=== PATIENT | female | born 1970 | race Caucasian/White ===

== ENCOUNTER 2019-03-14 22:42 | Inpatient (IN) | payer SELFPAY ==
[~2019-03-14 22:42] MED LIST: Iopamidol-370 76% 500 ML 1 ML ONE
[2019-03-14 23:10] LABS: #Lymphocytes 1.1 thou/uL (1.20-3.40); #Monocytes 0.5 thou/uL (0.11-0.59); #Neutrophils 7.1 thou/uL (1.40-6.50); %Basophils 0.4 % (0.0-1.0); %Eosinophils 0.4 % (0.0-10.0); %Lymphocytes 12.7 % (21.0-51.0); %Monocytes 5.5 % (0.0-10.0); %Neutrophils 80.9 % (42.0-75.0); Mean Corpuscular HGB CONC 35.8 g/dL (32.0-36.0); Mean Corpuscular Hemoglobin 35.2 pg (27.0-31.0); Mean Corpuscular Volume 98.3 fL (78.0-98.0); Mean Platelet Volume 7.8 fL (7.4-10.4); Platelet Count 211 thou/uL (130-400); RBC Distribution Width 11.1 % (11.5-14.5); Red Blood Cell (RBC) Count 4.83 mill/uL (4.20-5.40); White Blood Cell (WBC) Count 8.7 thou/uL (4.8-10.8)
[2019-03-14 23:24] LABS: Bacteria/HPF None Seen HPF (None Seen); Bilirubin Negative (Negative); Blood, Urine Trace (Negative); Clarity Turbid (Clear); Glucose, Urine (Dipstick) Normal (Negative); Leukocyte Negative Leu/uL (Negative); Nitrite Negative (Negative); Protein, Urine (Dipstick) 30 mg/dL (Neg-Trace); RBC/HPF 0-3 HPF (0-3); Urobilinogen Normal mg/dL (Less than 2)
[2019-03-14 23:26] LABS: Pregnancy Test - Urine (BHCG) Negative (Negative); Pregu Control Background? CLEAR/WHITE (CLR/WHITE); Pregu Control Bar Appear? YES (CONTROL BAR); Specific Gravity 1.015 (1.002-1.036)
[2019-03-14 23:31] LABS: ALT (SGPT) 24 U/L (8-55); AST (SGOT) 31 U/L (5-34); Alkaline Phosphatase 93 U/L (40-110); Anion Gap 19 mmol/L (10-20); BUN (Urea Nitrogen) 7 mg/dL (7.0-18.7); Calc. Creatinine Clearance 0 mL/min (70-130); Calcium 10.3 mg/dL (7.8-10.44); Carbon Dioxide 23 mmol/L (22-29); Chloride 96 mmol/L (98-107); Estimated GFR-MDRD 62; Globulin 3.5 g/dL (2.4-3.5); Glucose 207 mg/dL (70-105); Lipase 737 U/L (8-78); Potassium 3.3 mmol/L (3.5-5.1); Protein, Total 8.5 g/dL (6.0-8.3); Sodium 135 mmol/L (136-145)
[2019-03-14] MEDS ORDERED: Ondansetron PF 4 MG/2 ML Vial ONE (23:33)
[2019-03-14] MEDS ORDERED: Fentanyl 100 MCG/2 ML VIAL ONE (23:33)
[2019-03-15] MEDS ORDERED: Fentanyl 100 MCG/2 ML VIAL ONE (02:15)
[2019-03-15] MEDS ORDERED: Ondansetron ODT 4 MG TAB SL PRN (04:24)
[2019-03-15] MEDS ORDERED: Ondansetron PF 4 MG/2 ML Vial IVP PRN ×2 (04:24→05:57)
[2019-03-15] MEDS: Fentanyl 100 MCG/2 ML VIAL SLOW IVP PRN ×8 (04:46→22:08)
[2019-03-15 04:52] VITALS: BMI 27.0
[2019-03-15] MEDS ORDERED: Ondansetron ODT 4 MG TAB PO PRN (05:57)
[2019-03-15] MEDS ORDERED: Calcium Carbonate 500 MG ChewTAB PO PRN (05:57)
[2019-03-15] MEDS ORDERED: hydrALAZINE 20 MG/ML VIAL SLOW IVP PRN (06:00)
[2019-03-15] MEDS: D5 1/2 NS w/20 mEq KCL 1,000 ML IV SCH ×3 (06:24→18:21)
--- NOTE | 2019-03-15 06:36 | HP ---
PRIMARY CARE PHYSICIAN: The patient recently relocated to [place]. CHIEF COMPLAINT: Abdominal discomfort. HISTORY OF PRESENT ILLNESS: The patient is a 48-year-old female with intermittent alcohol abuse, presented to the emergency room with abdominal discomfort. The abdominal discomfort was in the epigastric region radiating to her back. It constant with intermittent waxing and waning. The pain started 2 days ago. The patient drank heavily this week end and her last drink was Wednesday. She had several episodes of vomiting, which was bilious. She denies any fever or chills. No chest pain, palpitations, lightheadedness, dizziness, or diaphoresis reported. In the emergency room, her workup was consistent with acute pancreatitis with lipase of 737. She received a total of 100 mcg of fentanyl with IV fluids and Zofran in the emergency room. PAST MEDICAL HISTORY: 1. Hypertension. 2. History of pancreatitis, this is a 4th episode this year. 3. Colonic polyp. 4. Hiatal hernia. 5. Fatty liver. PAST SURGICAL HISTORY: Partial hysterectomy. Tonsillectomy. EGD. Colonoscopy that showed several polyps. She was advised to get colonoscopy every year by her primary care physician per patient report. ALLERGIES: NO KNOWN DRUG ALLERGIES. CURRENT HOME MEDICATIONS: 1. Amlodipine 5 mg daily. 2. Bentyl 10 mg daily. 3. Omeprazole 20 mg daily. SOCIAL HISTORY: The patient drinks alcohol intermittently. Denies any drug use. No smoking. She currently lives with her family. FAMILY HISTORY: Heart disease runs in her family. REVIEW OF SYSTEMS: All other review of systems was reviewed and were negative. PHYSICAL EXAMINATION: VITAL SIGNS: In the emergency room showed temperature 97.8, respirations 20, pulse of 105 with a blood pressure 145/89 with O2 saturation 98% on room air. GENERAL: A 48-year-old female in mild distress due to epigastric discomfort. HEENT: Head is atraumatic and normocephalic. Sclerae anicteric. Dry mucous membranes. No oral lesion. NECK: Supple. No JVD appreciated. No carotid bruit. LUNGS: Clear to auscultation bilaterally. No wheezing, rales, or rhonchi. HEART: S1 and S2 present. Regular rate and rhythm. No rubs or gallops. ABDOMEN: Soft. There is epigastric tenderness on superficial palpation. No rebound or guarding. No costovertebral angle tenderness. EXTREMITIES: No edema or calf tenderness. NEUROLOGIC: Grossly nonfocal. Moves all 4 extremities. PSYCHIATRIC: Alert, awake and oriented x3. SKIN: Warm and dry. LYMPH NODES: No palpable lymph nodes in the neck. PERIPHERAL VASCULAR: Radial pulses palpable bilaterally. MUSCULOSKELETAL: No joint swelling or tenderness. LABORATORY FINDINGS: CBC showed WBC 8.7 with hemoglobin 17, hematocrit 47.5, MCV of 98.3, platelet 211. Chemistry showed sodium 135, potassium 3.3, chloride 96, bicarb 23, BUN 7, creatinine 0.96, glucose of 207. Urinalysis was negative for any bacteria. IMAGING: CT scan of the abdomen and pelvis has been done, report is pending at this time. Per ER report, it was consistent with pancreatitis without any complications. IMPRESSION: 1. Acute alcoholic pancreatitis. Per patient report, she denies any history of cholelithiasis. 2. Alcohol abuse. 3. Dehydration with hyponatremia and hypokalemia. 4. Hyperglycemia, rule out diabetes mellitus type 2. 5. History of hypertension. 6. Fatty liver. 7. Hiatal hernia. 8. History of colonic polyp. 9. Macrocytosis probably secondary to alcoholism. PLAN: 1. The patient will be monitored on the medical floor. We will continue IV fluids. We will await official CT scan of the abdomen report. 2. Recheck labs in a.m. including hemoglobin A1c and lipase. 3. We will keep her n.p.o. except for ice chips. 4. DVT prophylaxis. 5. The patient was extensively counseled to quit drinking. Plan of care was discussed with the patient in detail. She stated understanding. Job ID: [id number]
[2019-03-15] MEDS: Cyanocobalamin (Vitamin B-12) 1,000 MCG TAB PO SCH (08:33)
[2019-03-15] MEDS: Folic Acid 1 MG TAB PO SCH (08:33)
[2019-03-15] MEDS: Famotidine 20 MG TAB PO SCH ×2 (08:34→19:30)
[2019-03-15] MEDS: Thiamine 100 MG TAB PO SCH (08:34)
[2019-03-15] MEDS: Multivit, Therapeutic 1 TAB PO SCH (08:34)
--- NOTE | 2019-03-15 08:40 | CT ---
PRELIMINARY REPORT/[facility]/EMERGENCY AFTER HOURS PROCEDURE: PROCEDURE INFORMATION: Exam: CT Abdomen And Pelvis With Contrast Exam date and time: 03/15/2019 12:28 AM Age: 48 years old Clinical history: Patient HX: F48 presents to ED with C/O sharp abdominal pain that radiates to her b ack and chest. Pain began on Wednesday as intermittent pain, but PT is now reporting that the pain is co nstant. PT also C/O nausea, vomiting, and subjective fever. PT reports that this pain feels like when she had pancreatitis in the past. Reports that she has had pancreatitis 3 times from a HX of heavy d rinking. Last pancreatitis was July of this year. PT drank heavily this weekend and reports that her last drink was Wednesday. Patient has taken ibuprofen for pain. Denies HX of diabetes, heart problems , and kidney function problems. PT does not have a gi doctor in this area. Denies diarrhea and urinar y complaints. Pmhx of HTN, hyperlipidemia and fatty liver with no scarring. Surgical HX of hysterectomy. TECHNIQUE: Imaging protocol: Computed tomography of the abdomen and pelvis with intravenous contrast. COMPARISON: No relevant prior studies available. FINDINGS: Liver: There is hepatomegaly and fatty infiltration of the liver. There are no focal liver lesions pr esent. Gallbladder and bile ducts: The gallbladder is distended without wall thickening, stones or surroundi ng inflammatory change. Pancreas: Mild peripancreatic edema may represent acute pancreatitis. No mass or duct dilation. Spleen: Normal. No splenomegaly. Adrenals: Normal. No mass. Kidneys and ureters: Normal. No hydronephrosis. Stomach and bowel: The stomach and small bowel are normal.There is diverticular disease of the colon, without evidence of acute diverticulitis. No perforation, or abscess. No signs or history of bleeding provided. Appendix: A normal appendix is identified. Intraperitoneal space: Unremarkable. No free air. No significant fluid collection. Vasculature: Unremarkable. No abdominal aortic aneurysm. Lymph nodes: Unremarkable. No enlarged lymph nodes. Bladder: Unremarkable as visualized. Reproductive: The patient is status post hysterectomy. No adenexal masses are seen. Bones/joints: Unremarkable. No acute fracture. Soft tissues: There is a small fat-containing umbilical hernia. IMPRESSION: Acute pancreatitis. Thank you for allowing us to participate in the care of your patient. Dictated and Authenticated by: Erin Montana MD 03/15/2019 12:46 AM Central Time ([place] & [place]) FINAL REPORT EMERGENCY AFTER HOURS CT ABDOMEN AND PELVIS: IMPRESSION: I agree with the preliminary report provided by [facility]. There is peripancreatic inflammatory stranding suspicious for pancreatitis. No drainable fluid collec tion is evident. There is a small right hepatic lobe cyst. There are possible layered densities withi n the gallbladder and possibly related to stones. Right upper quadrant ultrasound is recommended for further evaluation. Spleen, adrenal glands, and kidneys appear within normal limits. There is a wilton l appendix in the right lower quadrant. There is scattered colonic diverticulosis without evidence of active diverticulitis. There is scattered degenerative and osteoarthritic change. POS: ANDREA
[2019-03-15] MEDS ORDERED: FLU VACC QS2019-20(6MOS UP)/PF 60 MCG/0.5 ML SYRINGE IM ONE (09:00)
[2019-03-15 12:43] LABS: Anion Gap 15 mmol/L (10-20); BUN (Urea Nitrogen) 4 mg/dL (7.0-18.7); Calc. Creatinine Clearance 104 mL/min (70-130); Calcium 9.3 mg/dL (7.8-10.44); Carbon Dioxide 22 mmol/L (22-29); Chloride 102 mmol/L (98-107); Estimated GFR-MDRD Greater than 90; Glucose 180 mg/dL (70-105); Potassium 3.6 mmol/L (3.5-5.1); Sodium 135 mmol/L (136-145)
[2019-03-15 13:22] LABS: Hemoglobin 15.4 g/dL (12.0-16.0); Lymphocytes 7 % (21-51); MDiff Complete? YES; Mean Corpuscular HGB CONC 35.3 g/dL (32.0-36.0); Mean Corpuscular Hemoglobin 34.5 pg (27.0-31.0); Mean Corpuscular Volume 97.7 fL (78.0-98.0); Mean Platelet Volume 7.8 fL (7.4-10.4); Monocytes 3 % (0-10); Neutrophil 90 % (42-75); Platelet Count 176 thou/uL (130-400); Platelet Morphology Comment Appears Adequate; RBC Distribution Width 11.1 % (11.5-14.5); Red Blood Cell (RBC) Count 4.45 mill/uL (4.20-5.40); White Blood Cell (WBC) Count 10.4 thou/uL (4.8-10.8)
[2019-03-15] MEDS: Ketorolac Tromethamine 30 MG/ML VIAL IVP PRN ×2 (16:23→22:09)
[2019-03-15] MEDS ORDERED: Acetaminophen 1,000 MG in Premix Bag 1 BAG IVPB PRN (17:05)
--- NOTE | 2019-03-15 17:14 | PDOC.EVN ---
Event Note - Event Note Event Note: The patient continues to have severe abdominal pain. Her pain started after binge drinking a week ago. She hasn't eaten in a week, has had no bowel movement in a week. Her pain is epigastric, radiating to between her shoulder blades. Worst with eating. Fentanyl helps for an hour but then pain comes right back. She is trying toradol now. She had banana bag overnight she says. 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 Has no insurance. Moved to [place] three months ago and is bored, therefore drinks 1 pint of alcohol on weekends Patient says she had colonoscopy with 30 polyps discovered. Had an EGD last year that showed hiatal hernia. Mom had a large umbilical hernia with intestines hanging out. Dad had diverticulitis. Patient reports history of uterine cancer. Vitals: stable Gen: alert, awake, oriented times three. In distress from pain, tearful CVS: RRR, no murmurs, rubs, and gallops Lungs: CTAB Abdomen: +BS, soft, epigastric tenderness, + RUQ tenderness to deep palpation Extremities: no edema Labs: hypokalemia resolved Patient has no WBC Imaging: CT shows acute pancreatitis, distended gallbladder A/P: 48 year old with acute pancreatitis from alcohol - check abdominal ultrasound to evaluate distended GB. If positive for cholecystitis, consult surgery - add IV toradol prn, IV tylenol prn, continue IV fluids - add IV protonix for GERRD
--- NOTE | 2019-03-15 18:21 | ULT ---
GALLBLADDER ULTRASOUND: HISTORY: Abdominal pain, pancreatitis FINDINGS: The liver demonstrates increased echogenicity with focal sparing adjacent to the gallbladder. No hepa tic mass or abnormal biliary ductal dilatation is seen. The common duct measures 2 mm in diameter. The pancreas is not visualized due to overlying bowel gas. No gallstones, gallbladder wall thickening or pericholecystic fluid is identified. The right kidney i s normal. No free fluid is seen in the Stewart's pouch. IMPRESSION: 1. Fatty liver 2. No evidence of cholelithiasis
[2019-03-15] MEDS: Enoxaparin Sodium 40 MG/0.4 ML SYRINGE SC SCH (19:14)
[2019-03-16] MEDS: Fentanyl 100 MCG/2 ML VIAL SLOW IVP PRN ×5 (01:36→22:06)
[2019-03-16] MEDS: D5 1/2 NS w/20 mEq KCL 1,000 ML IV SCH ×4 (01:36→22:15)
[2019-03-16] MEDS: Ketorolac Tromethamine 30 MG/ML VIAL IVP PRN ×3 (04:13→18:51)
[2019-03-16 05:39] LABS: #Eosinphils 0.1 thou/uL (0.0-0.7); #Lymphocytes 0.9 thou/uL (1.20-3.40); #Monocytes 0.4 thou/uL (0.11-0.59); #Neutrophils 5.6 thou/uL (1.40-6.50); %Basophils 0.2 % (0.0-1.0); %Lymphocytes 12.9 % (21.0-51.0); %Monocytes 5.3 % (0.0-10.0); %Neutrophils 80.6 % (42.0-75.0); Hemoglobin 13.7 g/dL (12.0-16.0); Mean Corpuscular HGB CONC 35.3 g/dL (32.0-36.0); Mean Corpuscular Hemoglobin 34.5 pg (27.0-31.0); Mean Corpuscular Volume 97.5 fL (78.0-98.0); Mean Platelet Volume 7.8 fL (7.4-10.4); Platelet Count 176 thou/uL (130-400); RBC Distribution Width 11.1 % (11.5-14.5); Red Blood Cell (RBC) Count 3.99 mill/uL (4.20-5.40); White Blood Cell (WBC) Count 6.9 thou/uL (4.8-10.8)
[2019-03-16 05:45] LABS: Hemoglobin A1c 5.5 % (4.0-6.0)
[2019-03-16 06:03] LABS: ALT (SGPT) 15 U/L (8-55); AST (SGOT) 17 U/L (5-34); Alkaline Phosphatase 67 U/L (40-110); Anion Gap 10 mmol/L (10-20); BUN (Urea Nitrogen) Less than 4 mg/dL (7.0-18.7); Bilirubin, Total 0.8 mg/dL (0.2-1.2); Calc. Creatinine Clearance 106 mL/min (70-130); Calcium 9.3 mg/dL (7.8-10.44); Carbon Dioxide 26 mmol/L (22-29); Chloride 102 mmol/L (98-107); Estimated GFR-MDRD Greater than 90; Globulin 2.9 g/dL (2.4-3.5); Glucose 193 mg/dL (70-105); Lipase 342 U/L (8-78); Magnesium 1.6 mg/dL (1.6-2.6); Phosphorus 2.9 mg/dL (2.3-4.7); Potassium 3.6 mmol/L (3.5-5.1); Protein, Total 6.9 g/dL (6.0-8.3); Sodium 134 mmol/L (136-145)
[2019-03-16] MEDS: Folic Acid 1 MG TAB PO SCH (08:03)
[2019-03-16] MEDS: Thiamine 100 MG TAB PO SCH (08:03)
[2019-03-16] MEDS: Famotidine 20 MG TAB PO SCH ×2 (08:04→21:24)
[2019-03-16] MEDS: Multivit, Therapeutic 1 TAB PO SCH (08:04)
[2019-03-16] MEDS: Cyanocobalamin (Vitamin B-12) 1,000 MCG TAB PO SCH (08:04)
[2019-03-16] MEDS: Pantoprazole 40 MG VIAL IVP SCH (08:06)
[2019-03-16] MEDS ORDERED: Senokot S 8.6-50 MG TAB PO SCH (17:30)
[2019-03-16] MEDS ORDERED: Lorazepam 0.5 MG TAB PO SCH (17:30)
[2019-03-16] MEDS ORDERED: Polyethylene Glycol 3350 17 GM Packet PO SCH (17:30)
[2019-03-16] MEDS: Enoxaparin Sodium 40 MG/0.4 ML SYRINGE SC SCH (21:26)
[2019-03-17] MEDS: Ketorolac Tromethamine 30 MG/ML VIAL IVP PRN (03:19)
[2019-03-17] MEDS: D5 1/2 NS w/20 mEq KCL 1,000 ML IV SCH (04:30)
[2019-03-17] MEDS: Fentanyl 100 MCG/2 ML VIAL SLOW IVP PRN (04:34)
[2019-03-17] MEDS ORDERED: Senokot S 8.6-50 MG TAB PO SCH (09:00)
[2019-03-17] MEDS: Famotidine 20 MG TAB PO SCH (09:19)
[2019-03-17] MEDS: Thiamine 100 MG TAB PO SCH (09:20)
[2019-03-17] MEDS: Multivit, Therapeutic 1 TAB PO SCH (09:20)
[2019-03-17] MEDS: Cyanocobalamin (Vitamin B-12) 1,000 MCG TAB PO SCH (09:20)
[2019-03-17] MEDS: Pantoprazole 40 MG VIAL IVP SCH (09:21)
[2019-03-17] MEDS: Folic Acid 1 MG TAB PO SCH (09:21)
--- NOTE | 2019-03-17 11:38 | PDOC.HOSPP ---
- Subjective Encounter Date: 03/16/19 Encounter Time: 09:30 non-verbal Subjective: LATE entry note The patient states her pain is down to a 3/10. Patient denies nausea or vomiting. She states toradol helps a lot. Tolerated clears, wants to advance to full liquid diet. Patient is saying she is bloated and feels constipated. Also wanted something for anxiety - Objective Vital Signs & Weight: Vital Signs (12 hours) Temp Pulse Resp BP BP Pulse Ox 03/17/19 08:00 96 03/17/19 07:39 98.7 F 70 18 133/86 96 03/17/19 06:53 96 03/17/19 04:14 98.1 F 85 16 121/78 96 03/17/19 00:11 98.0 F 81 18 120/78 96 Weight Admit Weight 142 lb Weight 142 lb 14.4 oz I&O: 03/16/19 03/17/19 03/18/19 06:59 06:59 06:59 Intake Total 2300 Balance 2300 Result Diagrams: 03/16/19 05:13 03/16/19 05:13 Hospitalist ROS - Review of Systems Constitutional: denies: fever, chills Cardiovascular: denies: chest pain - Medication Medications: Active Medications Generic Name Dose Route Start Last Admin Trade Name Freq PRN Reason Stop Dose Admin Cyanocobalamin 1,000 mcg 03/15/19 09:00 03/17/19 09:20 Vitamin B-12 PO 1,000 mcg DAILY ALLISON Administration Enoxaparin Sodium 40 mg 03/15/19 21:00 03/16/19 21:26 Lovenox SC Not Given 2100 ALLISON Famotidine 20 mg 03/15/19 09:00 03/17/19 09:19 Pepcid PO 20 mg BID ALLISON Administration Fentanyl 50 mcg 03/16/19 09:16 03/17/19 04:34 Sublimaze SLOW IVP 50 mcg Q4H PRN Administration Severe Pain (7-10) Folic Acid 1 mg 03/15/19 09:00 03/17/19 09:21 Folvite PO 1 mg DAILY ALLISON Administration Potassium Chloride/Dextrose/Sod Cl 1,000 mls @ 150 mls/hr 03/15/19 06:00 04:30 D5 1/2 Ns W/20 Meq Kcl IV 1,000 mls .[id number] ALLISON Administration Ketorolac Tromethamine 15 mg 03/16/19 09:16 03/17/19 03:19 Toradol IVP 03/20/19 16:19 15 mg Q6H PRN Administration Pain Multivitamins 1 tab 03/15/19 09:00 03/17/19 09:20 Theragran PO 1 tab DAILY ALLISON Administration Pantoprazole Sodium 40 mg 03/16/19 09:00 03/17/19 09:21 Protonix IVP 40 mg DAILY ALLISON Administration Senna/Docusate Sodium 1 tab 03/17/19 09:00 03/17/19 09:20 Senokot S PO 1 tab BID ALLISON Administration Thiamine HCl 100 mg 03/15/19 09:00 03/17/19 09:20 Thiamine PO 100 mg DAILY ALLISON Administration - Exam General Appearance: NAD, awake alert Eye: PERRL, anicteric sclera ENT: normocephalic atraumatic, no oropharyngeal lesions Neck: supple, symmetric, no JVD Heart: RRR, no murmur, no gallops, no rubs Respiratory: CTAB, no wheezes, no rales, no ronchi Gastrointestinal: soft, non-tender, non-distended, diminished bowl sounds Extremities: no cyanosis, no clubbing, no edema Hosp A/P - Plan This is 48 year old female with acute pancreatitis Acute pancreatitis - started clears, advance to full iquid in afternoon. Patient says she will try regular diet tomorrow Constipation - miralax Alcohol abuse - patient will abstain on discharge - thiamine and folic acid Hypertension - hold amlodipine Hyponatremia - continue to monitor Code status: full code
[2019-03-17 12:48] VITALS: BP 145/87; TEMP 97.4
--- NOTE | 2019-03-17 16:18 | DIS ---
DATE OF ADMISSION: 03/15/2019 DATE OF DISCHARGE: 03/17/2019 DISCHARGE DIAGNOSES: Acute pancreatitis, fatty liver, alcoholism, hyponatremia/hypokalemia, hyperglycemia, constipation CONSULTATIONS: None. PROCEDURES: None. BRIEF HISTORY OF PRESENT ILLNESS: This is a 48-year-old female with a past medical history of pancreatitis, alcoholism, who presented to the emergency room with abdominal discomfort. The patient reported that she had binge drink over the weekend and shortly after, started getting epigastric pain radiating to her back. The patient tried to see if it would go away on its own; however, it progressively got worse and was associated with multiple episodes of bilious vomiting. She denied any fevers or chills. In the emergency room, she was noted to have a lipase of 737. She had a CT scan of her abdomen that was consistent with acute pancreatitis. She was admitted for further management. Acute pancreatitis: The patient was given IV fluids and IV fentanyl p.r.n. She had the most relief with IV Toradol and on 03/16 she was advanced to a full liquid diet. This morning, she tolerated a regular diet and had no abdominal pain, nausea, or vomiting. She does have a history of gastritis and will take Bentyl at home p.r.n. as needed for pain. The patient did have an ultrasound done of her abdomen on the due to distended gallbladder that was seen on CT scan. This showed a fatty liver with no evidence of cholelithiasis. The patient was advised to stop drinking alcohol. She stated this is the last time that she would and she would start going to AA meetings. She will follow up with her PCP in a week. Alcoholism: The patient states that she binge drinks on the weekend. 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 She was advised to abstain from alcohol, which the patient stated she would comply with. On discharge, she was advised to take [id number] thiamine and was given prescriptions for folic acid supplements. Hyponatremia/hypokalemia: The patient presented with a potassium of 3.3 secondary to vomiting. This improved to 3.6 on the day of discharge. She did have a sodium of 134 on the day of discharge. She can consider getting a repeat BMP in a week. Hypertension: The patient was on amlodipine as an outpatient. She was not receiving it in the hospital and her blood pressure was in the 120s to 140s. She was told that she can hold off on it for now and if her blood pressure increases to 140 to resume it. Constipation: The patient had some constipation from IV pain medications, which resolved on the day of discharge. Hyperglycemia: The patient had a blood glucose elevated of 180 to 207. She had hemoglobin A1c checked that was 5.5. This can be followed up with her PCP as an outpatient. DISCHARGE PHYSICAL EXAMINATION: VITAL SIGNS: Temperature 98.5, heart rate 93, respiratory rate 18, O2 saturation 95% on room air, blood pressure 145/89. : The patient is alert, awake, and oriented x3. She is well appearing, slightly anxious. CVS: Regular rate and rhythm with no murmurs, rubs, or gallops. LUNGS: Clear to auscultation bilaterally. ABDOMEN: Positive bowel sounds. Slightly hyperactive, soft, nontender, nondistended. EXTREMITIES: She has 2+ dorsal pedis pulses, no edema. PERTINENT LABORATORY DATA: CBC on 03/16: Unremarkable. BMP on 03/16: Shows a sodium of 134, glucose of 193. LFTs on 03/16: Normal with AST of 17, ALT of 15, alkaline phosphatase of 67. Lipase 03/16: 342, which is improved from 615 on the . Hemoglobin A1c: 5.5. UA: Showed 30 of protein, 80 ketones, 7-10 white blood cells. PERTINENT IMAGING: CT abdomen/pelvis on the : Shows hepatomegaly and fatty infiltration of the liver. She also has a distended gallbladder without wall thickening, stones or surrounding inflammatory change. She has mild peripancreatic edema, which may represent acute pancreatitis. Abdominal ultrasound 03/15: Shows fatty liver with no evidence of cholelithiasis. DISCHARGE CONDITION: Stable. DISPOSITION: Home. ACTIVITY: As tolerated. DIET: Regular diet. DISCHARGE MEDICATIONS: Amlodipine 5 mg p.o. daily, Bentyl 10 mg p.o. daily, omeprazole 20 mg p.o. daily, folic acid 1 mg p.o. daily. The patient will buy [id number] B1 supplements. DISCHARGE INSTRUCTIONS: The patient should follow up with her PCP in a week. With regard to her fatty liver, she should abstain from alcohol and consider weight loss. She should consider a followup ultrasound as an outpatient. She should get a repeat BMP to evaluate resolution of hyponatremia and hypokalemia. Job ID: [id number]
== END 2019-03-17 14:28 | disposition home or self-care (01) | DRG 439 ==
LOC: ERS 22:42 → T4-B 03-15 04:39
PROVIDERS: ADMIT Internal Medicine; ATTEND Internal Medicine
DX: K85.20 Alcohol induced acute pancreatitis without necrosis or infection (principal); E87.1 Hypo-osmolality and hyponatremia; F10.288 Alcohol dependence with other alcohol-induced disorder; E87.6 Hypokalemia; K76.0 Fatty (change of) liver, not elsewhere classified; K59.00 Constipation, unspecified; I10 Essential (primary) hypertension; E86.0 Dehydration; R73.9 Hyperglycemia, unspecified; D75.89 Other specified diseases of blood and blood-forming organs; Z86.010 Personal history of colon polyps; Z90.710 Acquired absence of both cervix and uterus; Z79.899 Other long term (current) drug therapy
CPT/HCPCS: 36415; 74177; 76705; 80048; 80053; 81003; 81015; 81025; 83036; 83690; 83735; 84100; 85007; 85025; 85027; C9113; J0131; J1885; J2405; J3010; Q9967

== ENCOUNTER 2023-03-19 03:05 | Inpatient (IN) | payer BC, SELFPAY ==
[2023-03-19] MEDS ORDERED: Pantoprazole 40 MG VIAL ONE (03:26)
[2023-03-19] MEDS ORDERED: cefTRIAXone (ROCEPHIN) 1 GM VIAL ONE (03:26)
[2023-03-19] MEDS ORDERED: Sodium Chloride 0.9% 100 ML ONE (03:27)
[2023-03-19 03:40] LABS: #Eosinphils 0.2 thou/uL (0.0-0.7); #Monocytes 0.6 thou/uL (0.11-0.59); #Neutrophils 5.3 thou/uL (1.40-6.50); %Basophils 0.4 % (0.0-1.0); %Eosinophils 2.8 % (0.0-10.0); %Lymphocytes 8.8 % (21.0-51.0); %Monocytes 8.9 % (0.0-10.0); %Neutrophils 78.7 % (42.0-75.0); Hemoglobin 14.6 g/dL (12.0-16.0); Mean Corpuscular HGB CONC 34.8 g/dL (32.0-36.0); Mean Corpuscular Hemoglobin 34.8 pg (27.0-31.0); Mean Platelet Volume 11.1 fL (7.4-10.4); Platelet Count 148 10x3/uL (130-400); RBC Distribution Width 12.2 % (11.5-14.5); White Blood Cell (WBC) Count 6.7 10x3/uL (4.8-10.8)
[2023-03-19 03:48] LABS: BHCG - Serum Negative (NEGATIVE); Pregs Control Background? CLEAR/WHITE (CLR/WHITE); Pregs Control Bar Appear? YES (CONTROL BAR)
[2023-03-19 04:05] LABS: ALT (SGPT) 71 U/L (8-55); AST (SGOT) 84 U/L (5-34); Albumin 4.5 g/dL (3.5-5.0); Alkaline Phosphatase 137 U/L (40-110); BUN (Urea Nitrogen) 46 mg/dL (9.8-20.1); Bilirubin, Total 1.6 mg/dL (0.2-1.2); Calc. Creatinine Clearance 0 mL/min (70-130); Calcium 8.3 mg/dL (7.8-10.44); Chloride 65 mmol/L (98-107); Estimated GFR 17; Globulin 3.5 g/dL (2.4-3.5); Potassium 4.1 mmol/L (3.5-5.1); Sodium 125 mmol/L (136-145)
[2023-03-19 04:06] LABS: Acetaminophen Less than 10 mcg/mL (10.0-30.0); Alcohol Less than 10.0 mg/dL (Less than 10); Lipase 65 U/L (8-78); Magnesium 4.8 mg/dL (1.6-2.6); Salicylate Less than 8.0 mg/dL (15.0-30.0)
[2023-03-19 04:07] LABS: PTT 29.8 sec (22.9-36.1); Prothrombin Time 13.9 sec (12.0-14.7)
[2023-03-19] MEDS ORDERED: hydrOXYzine 25 MG TAB ONE (04:08)
[2023-03-19 04:10] LABS: Troponin I 0.021 ng/mL (< 0.028)
[2023-03-19 04:23] LABS: Carbon Dioxide Less than 8 mmol/L (22-29); Glucose 453 mg/dL (70-105)
[2023-03-19 04:38] LABS: Analyzer IN Cardio ER; Base Excess (BEa) -19.9 mEq/L (-2.0 to +3.0); Carboxyhemoglobin (COHb) 0.7 gm% (0.0-3.0); Hematocrit-ABG 37 % (36.0-47.0); Hemoglobin (Hb) 12.5 g/dL (12.0-16.0); O2 Tension (PaO2), arterial 102.2 mmHg (80.0-100.0); Potassium - ABG Lab 3.75 mmol/L (3.70-5.30)
[2023-03-19 04:44] LABS: Actual Bicarbonate (HCO3a) 5.9 mEq/L (22-28); CO2 Tension 15.7 mmHg (35.0-45.0); Puncture Site RRA; pH, Arterial 7.195 (7.35-7.45)
[2023-03-19 04:45] LABS: ALV-art Gradient 27.905 mmHg (0-20)
[2023-03-19] MEDS ORDERED: Morphine 4 MG/ML VIAL ONE (05:10)
[2023-03-19] MEDS ORDERED: INSULIN REGULAR IN 0.9 % NACL 100 UNITS/100 ML BAG ONE (05:22)
[2023-03-19] MEDS ORDERED: NS 0.9% w/ 20 MEQ KCL 1,000 ML IV PRN (05:23)
[2023-03-19] MEDS ORDERED: Ondansetron ODT 4 MG TAB PO PRN (05:23)
[2023-03-19] MEDS ORDERED: Dextrose 5 %-0.45 % NaCl 1,000 ML IV PRN (05:23)
[2023-03-19] MEDS ORDERED: Ondansetron PF 4 MG/2 ML Vial IVP PRN (05:23)
[2023-03-19] MEDS ORDERED: Acetaminophen 650 MG Suppository PR PRN (05:23)
[2023-03-19] MEDS ORDERED: Acetaminophen 325 MG TAB PO PRN (05:23)
[2023-03-19] MEDS ORDERED: Sodium Chloride 0.9% 1,000 ML IV PRN ×4 (05:23)
[2023-03-19] MEDS ORDERED: Electrolyte Replacement Protocol 1 EACH IVPB ONE (05:23)
[2023-03-19] MEDS ORDERED: Dextrose 50% Abboject 50 ML SYRINGE SLOW IVP PRN ×2 (05:23→20:03)
[2023-03-19] MEDS ORDERED: NS 0.9% w/ 20 MEQ KCL 1,000 ML ONE ×2 (05:40→08:43)
[2023-03-19] MEDS ORDERED: Octreotide Acetate 100 MCG/ML VIAL SLOW IVP SCH (06:00)
[2023-03-19] MEDS ORDERED: Octreotide Acetate 1,250 MCG in Sodium Chloride 0.9% 250 ML 250 ML IVPB SCH (06:00)
[2023-03-19] MEDS ORDERED: HUMULIN R 100 UNITS in Sodium Chloride 0.9% 100 ML IVPB SCH (06:00)
[2023-03-19] MEDS ORDERED: Octreotide Acetate 50 MCG/ML AMP SLOW IVP SCH (06:00)
[2023-03-19 06:38] LABS: BUN (Urea Nitrogen) 46 mg/dL (9.8-20.1); Calc. Creatinine Clearance 0 mL/min (70-130); Calcium 7.2 mg/dL (7.8-10.44); Chloride 75 mmol/L (98-107); Estimated GFR 19; Phosphorus 6.1 mg/dL (2.3-4.7); Potassium 4.2 mmol/L (3.5-5.1); Sodium 126 mmol/L (136-145)
[2023-03-19 06:44] LABS: Carbon Dioxide Less than 8 mmol/L (22-29); Glucose 408 mg/dL (70-105)
[2023-03-19] MEDS ORDERED: Sodium Bicarb 50 MEQ/50 ML VIAL ONE (06:47)
[2023-03-19 06:58] LABS: Bacteria/HPF None Seen HPF (None Seen); Bilirubin 1+ (Negative); Blood, Urine 2+ (Negative); CAUTI Indications for Culture Dysuria,urgency,freq; Clarity Turbid (Clear); Glucose, Urine (Dipstick) 70 mg/dL (Negative); Ketone, Urine 80 mg/dL (Negative); Leukocyte 75 Leu/uL (Negative); Nitrite Negative (Negative); Protein, Urine (Dipstick) 70 mg/dL (Neg-Trace); Specific Gravity, Urine 1.016 (1.002-1.036); Squamous Epithelial Greater than 50 HPF (0-3)
[2023-03-19 07:08] LABS: Urine Culture Reflex No No
[2023-03-19] MEDS: NS 0.9% w/ 20 MEQ KCL 1,000 ML IV PRN ×2 (08:50→11:05)
[2023-03-19 09:45] VITALS: BP 108/73
[2023-03-19 10:20] LABS: #Monocytes 0.3 thou/uL (0.11-0.59); #Neutrophils 3.2 thou/uL (1.40-6.50); %Basophils 0.2 % (0.0-1.0); %Lymphocytes 14.6 % (21.0-51.0); %Monocytes 6.9 % (0.0-10.0); %Neutrophils 78.1 % (42.0-75.0); Hematocrit 35.2 % (36.0-47.0); Hemoglobin 12.2 g/dL (12.0-16.0); Mean Corpuscular HGB CONC 34.7 g/dL (32.0-36.0); Mean Corpuscular Hemoglobin 34.6 pg (27.0-31.0); Mean Corpuscular Volume 99.7 fl (78.0-98.0); Mean Platelet Volume 10.6 fL (7.4-10.4); Platelet Count 112 10x3/uL (130-400); RBC Distribution Width 12.1 % (11.5-14.5); Red Blood Cell (RBC) Count 3.53 mill/uL (4.20-5.40)
[2023-03-19] MEDS ORDERED: Multivit, Adult Inj 10 ML VIAL IV SCH (10:45)
[2023-03-19 10:55] LABS: Anion Gap 30 mmol/L (10-20); BUN (Urea Nitrogen) 37 mg/dL (9.8-20.1); Calc. Creatinine Clearance 0 mL/min (70-130); Carbon Dioxide 14 mmol/L (22-29); Chloride 92 mmol/L (98-107); Estimated GFR 30; Glucose 234 mg/dL (70-105); Sodium 132 mmol/L (136-145)
[2023-03-19] MEDS: Morphine 4 MG/ML VIAL SLOW IVP PRN ×3 (11:05→20:38)
[2023-03-19 11:11] LABS: Calcium 6.8 mg/dL (7.8-10.44)
[2023-03-19 11:16] LABS: Polychromasia SLIGHT = 2-3 cells (100X) (0-2/hpf)
[2023-03-19 11:17] LABS: Platelet Adequacy Comment Platelets Decreased
[2023-03-19 11:30] VITALS: BMI 21.4
[2023-03-19] MEDS ORDERED: Multivitamins, Adult 10 ML in Sodium Chloride 0.9% 500 ML IV SCH (11:45)
[2023-03-19] MEDS ORDERED: Calcium Gluconate 4.6 MEQ in Sodium Chloride 0.9% 100 ML IVPB ONE (12:53)
[2023-03-19] MEDS: D5 1/2 NS w/20 mEq KCL 1,000 ML IV PRN ×3 (12:59→21:07)
[2023-03-19] MEDS ORDERED: CALCIUM GLUC 1 GM/NS 50 ML 1 GM in Premix 1 BAG IVPB SCH ×2 (13:15→17:30)
[2023-03-19] MEDS ORDERED: CALCIUM GLUC 1 GM/NS 50 ML BAG ONE (13:50)
[2023-03-19] MEDS: Thiamine HCl 200 MG/2 ML VIAL SLOW IVP SCH ×2 (14:32→15:22)
[2023-03-19] MEDS: Pantoprazole 80 MG, Admixture Fee 1 EACH in Sodium Chloride 0.9% 100 ML IVPB SCH (16:52)
[2023-03-19 17:11] LABS: Anion Gap 15 mmol/L (10-20); BUN (Urea Nitrogen) 22 mg/dL (9.8-20.1); Calc. Creatinine Clearance 44 mL/min (70-130); Calcium 7.5 mg/dL (7.8-10.44); Carbon Dioxide 24 mmol/L (22-29); Chloride 99 mmol/L (98-107); Estimated GFR 53; Glucose 125 mg/dL (70-105); Potassium 4.5 mmol/L (3.5-5.1); Sodium 133 mmol/L (136-145)
[2023-03-19] MEDS ORDERED: Dextrose 5% in Water 1,000 ML IV PRN (20:03)
[2023-03-19] MEDS ORDERED: Insulin Regular 300 UNITS/3 ML VIAL SC PRN ×2 (20:03)
[2023-03-19] MEDS ORDERED: Glucagon 1 MG/ML KIT IM PRN (20:03)
[2023-03-19] MEDS: Ciprofloxacin Lactate/D5W 400 MG in Premix 1 BAG IVPB SCH (20:38)
[2023-03-19] MEDS: Insulin Glargine 30 UNITS/0.3 ML VIAL SC SCH (20:38)
[2023-03-19 21:05] LABS: Hematocrit 29.5 % (36.0-47.0); Hemoglobin 10.5 g/dL (12.0-16.0)
[2023-03-19 21:25] LABS: Anion Gap 13 mmol/L (10-20); BUN (Urea Nitrogen) 17 mg/dL (9.8-20.1); Calc. Creatinine Clearance 50 mL/min (70-130); Calcium 7.6 mg/dL (7.8-10.44); Carbon Dioxide 24 mmol/L (22-29); Chloride 100 mmol/L (98-107); Estimated GFR 61; Glucose 233 mg/dL (70-105); Potassium 4.7 mmol/L (3.5-5.1); Sodium 132 mmol/L (136-145)
[2023-03-20] MEDS: Pantoprazole 80 MG, Admixture Fee 1 EACH in Sodium Chloride 0.9% 100 ML IVPB SCH (04:02)
[2023-03-20 05:01] LABS: Hematocrit 31.1 % (36.0-47.0); Manual Diff?? YES; Mean Corpuscular HGB CONC 35.4 g/dL (32.0-36.0); Mean Corpuscular Hemoglobin 34.8 pg (27.0-31.0); Mean Corpuscular Volume 98.4 fl (78.0-98.0); Mean Platelet Volume 10.4 fL (7.4-10.4); RBC Distribution Width 12.2 % (11.5-14.5); Red Blood Cell (RBC) Count 3.16 mill/uL (4.20-5.40); White Blood Cell (WBC) Count 4.4 10x3/uL (4.8-10.8)
[2023-03-20 05:04] LABS: Delete Auto Diff?? YES; Platelet Count 85 10x3/uL (130-400)
[2023-03-20 05:43] LABS: Anion Gap 16 mmol/L (10-20); BUN (Urea Nitrogen) 10 mg/dL (9.8-20.1); Calc. Creatinine Clearance 72 mL/min (70-130); Calcium 7.9 mg/dL (7.8-10.44); Carbon Dioxide 23 mmol/L (22-29); Chloride 97 mmol/L (98-107); Estimated GFR 94; Glucose 94 mg/dL (70-105); Potassium 4.2 mmol/L (3.5-5.1); Sodium 132 mmol/L (136-145)
[2023-03-20 06:45] LABS: Band 45 % (5-11); CellaVision Operator ID LAB.JMM; Eosinophils 4 % (0-10); Lymphocytes 19 % (21-51); Metamyelocyte 1 % (0-0); Monocytes 12 % (0-10); Neutrophil 18 % (42-75); Platelet Adequacy Comment Platelets Decreased; RBC Morphology Within Normal Limits; Total Cell Count 100
[2023-03-20] MEDS ORDERED: PROPOFOL 20 ML ONE (07:55)
[2023-03-20] MEDS ORDERED: Succinylcholine 200 MG/10 ml SYRINGE FS ONE ×2 (08:10→08:11)
[2023-03-20] MEDS ORDERED: Rocuronium Bromide 10 MG/ML (10ML VIAL) ONE ×2 (08:11→08:27)
[2023-03-20] MEDS ORDERED: fentaNYL 50 mcg/mL 1 mL Vial ONE (08:16)
[2023-03-20] MEDS ORDERED: Lidocaine 1% PF 5 ML VIAL ONE (08:27)
[2023-03-20] MEDS ORDERED: PROPOFOL 200 MG/20 ML VIAL ONE (08:27)
[2023-03-20] MEDS ORDERED: Ondansetron PF 4 MG/2 ML Vial ONE (08:27)
[2023-03-20] MEDS ORDERED: Succinylcholine Chloride 100 MG/5 ML SYRINGE FS ONE (08:27)
[2023-03-20] MEDS ORDERED: FLU VACC QS2023-24(6MOS UP)/PF 60 MCG/0.5 ML SYRINGE IM ONE (09:00)
[2023-03-20] MEDS ORDERED: Pantoprazole 40 MG VIAL IVP SCH ×2 (10:15→10:45)
[2023-03-20] MEDS: Insulin Glargine 30 UNITS/0.3 ML VIAL SC SCH ×2 (10:18→21:59)
[2023-03-20] MEDS: Thiamine HCl 200 MG/2 ML VIAL SLOW IVP SCH (10:18)
[2023-03-20] MEDS: Folic Acid 1 MG TAB PO SCH (10:18)
[2023-03-20] MEDS: Ciprofloxacin Lactate/D5W 400 MG in Premix 1 BAG IVPB SCH (10:45)
[2023-03-20] MEDS: Pantoprazole 40 MG VIAL IVP SCH (21:59)
[2023-03-21 05:18] LABS: #Eosinphils 0.1 thou/uL (0.0-0.7); #Monocytes 0.5 thou/uL (0.11-0.59); #Neutrophils 4.4 thou/uL (1.40-6.50); %Basophils 0.1 % (0.0-1.0); %Eosinophils 1.5 % (0.0-10.0); %Lymphocytes 24.6 % (21.0-51.0); %Monocytes 7.5 % (0.0-10.0); %Neutrophils 65.6 % (42.0-75.0); Hemoglobin 13.4 g/dL (12.0-16.0); Mean Corpuscular HGB CONC 35.3 g/dL (32.0-36.0); Mean Corpuscular Hemoglobin 34.5 pg (27.0-31.0); Mean Corpuscular Volume 97.9 fl (78.0-98.0); Mean Platelet Volume 10.8 fL (7.4-10.4); RBC Distribution Width 12.1 % (11.5-14.5); Red Blood Cell (RBC) Count 3.88 mill/uL (4.20-5.40); White Blood Cell (WBC) Count 6.7 10x3/uL (4.8-10.8)
[2023-03-21 05:40] LABS: Anion Gap 20 mmol/L (10-20); BUN (Urea Nitrogen) 5 mg/dL (9.8-20.1); Calc. Creatinine Clearance 81 mL/min (70-130); Calcium 8.6 mg/dL (7.8-10.44); Carbon Dioxide 26 mmol/L (22-29); Chloride 91 mmol/L (98-107); Estimated GFR 104; Glucose 90 mg/dL (70-105); Sodium 134 mmol/L (136-145)
[2023-03-21 05:44] LABS: Platelet Count 95 10x3/uL (130-400)
[2023-03-21] MEDS ORDERED: Electrolyte Replacement Protocol FS PRN (06:30)
[2023-03-21] MEDS ORDERED: Potassium Chloride 20 MEQ TAB PO SCH (06:30)
[2023-03-21] MEDS: Folic Acid 1 MG TAB PO SCH (08:36)
[2023-03-21] MEDS: Insulin Glargine 30 UNITS/0.3 ML VIAL SC SCH (08:36)
[2023-03-21] MEDS: Pantoprazole 40 MG VIAL IVP SCH (08:36)
[2023-03-21 10:09] VITALS: TEMP 98
[2023-03-21 10:41] LABS: Magnesium 1.9 mg/dL (1.6-2.6)
[2023-03-21] MEDS ORDERED: Magnesium 2 GM/50 ML(in water) 2 GM in Premix 1 BAG IVPB SCH (11:30)
[2023-03-21] MEDS ORDERED: Potassium Phosphate 30 MMOL in Sodium Chloride 0.9% 500 ML IVPB SCH (12:00)
[2023-03-21] MEDS ORDERED: Potassium Phosphate 22 MMOL in Sodium Chloride 0.9% 250 ML 250 ML IVPB SCH (12:00)
[2023-03-21] MEDS: Thiamine HCl 200 MG/2 ML VIAL SLOW IVP SCH (12:39)
[2023-03-21 13:54] LABS: Phosphorus Less than 1.0 mg/dL (2.3-4.7)
[2023-03-21 17:54] LABS: Phosphorus 2.9 mg/dL (2.3-4.7)
== END 2023-03-21 19:02 | disposition home or self-care (01) | DRG 380 ==
LOC: ERS 03:05 → ERHOLD 05:07 → CCU 10:47 → IMCU/EMU 17:51
PROVIDERS: ADMIT Student in an Organized Health Care Education/Training Program; ATTEND Internal Medicine
PROC: 4A033R1 Measurement of Arterial Saturation, Peripheral, Percutaneous Approach (ICD-10-PCS; 2023-03-19)
PROC: 0DJ08ZZ Inspection of Upper Intestinal Tract, Via Natural or Artificial Opening Endoscopic (ICD-10-PCS; principal; 2023-03-20)
DX: K22.11 Ulcer of esophagus with bleeding (principal); E11.10 Type 2 diabetes mellitus with ketoacidosis without coma; N17.9 Acute kidney failure, unspecified; E87.1 Hypo-osmolality and hyponatremia; K86.1 Other chronic pancreatitis; I85.01 Esophageal varices with bleeding; I10 Essential (primary) hypertension; F19.10 Other psychoactive substance abuse, uncomplicated; E80.6 Other disorders of bilirubin metabolism; F10.10 Alcohol abuse, uncomplicated; F17.210 Nicotine dependence, cigarettes, uncomplicated; E83.39 Other disorders of phosphorus metabolism; E83.51 Hypocalcemia; K76.0 Fatty (change of) liver, not elsewhere classified; E87.6 Hypokalemia; Z71.6 Tobacco abuse counseling; Z90.710 Acquired absence of both cervix and uterus; Z90.89 Acquired absence of other organs; Z71.41 Alcohol abuse counseling and surveillance of alcoholic
CPT/HCPCS: 36415; 36416; 36600; 71045; 74176; 76705; 80048; 80053; 80307; 81001; 82010; 82805; 83605; 83690; 83735; 83930; 84100; 84484; 84703; 85025; 85610; 85730; 86850; 86900; 86901; 93005; C9113; J0613; J0696; J0744; J1815; J2270; J2354; J2405; J2704; J3010; J3411; J3475; J3480; J3490; J7030; J7050